=== PATIENT | male | born 1975 | race American Indian/Alaskan Native ===

== ENCOUNTER 2016-10-16 22:49 | Emergency (ER) | payer BC, OTHER ==
[2016-10-16] MEDS ORDERED: Lidocaine 1% 20 ML MDV INJECT ONE (22:59)
[2016-10-16] MEDS ORDERED: Bacitracin Oint 1 GM U/D Packet TOP ONE (22:59)
[2016-10-16] MEDS ORDERED: Diphtheria,Pertussis(Acell),Tetanus Vaccine 0.5 ML Syringe IM ONE (23:02)
--- NOTE | 2016-10-16 23:02 | EDM.PDOC ---
ED HPI GENERAL MEDICAL PROBLEM - General Chief Complaint: Upper Extremity Injury/Pain Stated Complaint: PAIN RT THUMB Time Seen by Provider: 10/16/16 22:59 Source of Information: Reports: Patient - History of Present Illness INITIAL COMMENTS - FREE TEXT/NARRATIVE: a hook imbedded in his right thumb about one hour ago. He is not sure about tetanus update status. - Related Data Allergies Allergy/AdvReac Type Severity Reaction Status Date / Time No Known Allergies Allergy Verified 10/16/16 23:04 Home Meds: Home Meds . [No Known Home Meds] 10/16/16 [History] Past Medical History Other HEENT History: wears contacts/glasses Cardiovascular History: Denies: CAD, Heart Failure, Hypertension Respiratory History: Reports: Sleep Apnea Gastrointestinal History: Denies: Cirrhosis Genitourinary History: Denies: Chronic Renal Insuffiency Endocrine/Metabolic History: Reports: Obesity/BMI 30+. Denies: Diabetes, Type I , Diabetes, Type II - Past Surgical History HEENT Surgical History: Reports: Other (See Below) Musculoskeletal Surgical History: Reports: Arthroscopic Knee Social & Family History - Tobacco Use Smoking Status *Q: Never Smoker - Recreational Drug Use Recreational Drug Use: No Drug Use in Last 12 Months: No Review of Systems - Review of Systems Review Of Systems: See Below (he denies other complaints) ED EXAM, GENERAL - Physical Exam Exam: See Below Free Text/Narrative:: alert normal mentation palmar aspect right thumb with the base of a hook protruding from the mid portion. Course - Vital Signs Last Recorded V/S: Last Vital Signs Temp 97.5 F 10/16/16 23:06 Pulse 83 10/16/16 23:06 Resp 18 10/16/16 23:06 BP 196/110 H 10/16/16 23:06 Pulse Ox 94 L 10/16/16 23:06 - Orders/Labs/Meds Orders: Active Orders 24 hr Category Date Time Status Vaccines to be Administered [RC] PER UNIT ROUTINE Care 10/16/16 23:02 Active Meds: Medications Discontinued Medications Generic Name Dose Route Start Last Admin Trade Name Freq PRN Reason Stop Dose Admin Bacitracin 1 dose 10/16/16 22:59 10/16/16 23:12 Bacitracin Oint 1 Gm TOP 10/16/16 23:00 1 dose ONETIME ONE Administration Diphtheria/Tetanus/Acell Pertussis 0.5 ml 10/16/16 23:02 10/16/16 23:13 Adacel IM 10/16/16 23:03 0.5 ml .ONCE ONE Administration Lidocaine HCl 20 ml 10/16/16 22:59 10/16/16 23:12 Xylocaine 1% INJECT 10/16/16 23:00 20 ml ONETIME ONE Administration - Re-Assessments/Exams Free Text/Narrative Re-Assessment/Exam: 10/16/16 23:15 after local cleansing with alcohol, and infiltrative anesthesia with 1% lidocaine, a small incision was made with a #11 blade. Then a sterile small curved elizabeth clamp was introduced and grasped the shaft of the hook backing it out of the entry wound. He tolerated the procedure well. He is given augmentin po x one dose and a prescription for augmentin 875/125 one po bid x seven days. Departure - Departure Time of Disposition: 23:18 Disposition: Home, Self-Care 01 Condition: Good Clinical Impression: Fish hook injury of right thumb - Discharge Information Referrals: PCP,None [Primary Care Provider] - Forms: ED Department Discharge Additional Instructions: augmentin 875 / 125 bid x seven days keep area clean recheck for signs of infection - My Orders Last 24 Hours: My Active Orders 10/16/16 23:02 Vaccines to be Administered [RC] PER UNIT ROUTINE - Assessment/Plan Last 24 Hours: My Active Orders 10/16/16 23:02 Vaccines to be Administered [RC] PER UNIT ROUTINE
[2016-10-16] MEDS ORDERED: Amoxicillin/Clavulanate K 875-125 MG Tab PO ONE (23:25)
[2016-10-16 23:47] VITALS: BP 181/101
== END 2016-10-16 23:48 | disposition home or self-care (01) ==
LOC: MW.ED 22:49
DX: S60.351A Superficial foreign body of right thumb, initial encounter (principal); E66.9 Obesity, unspecified; Z68.41 Body mass index [BMI] 40.0-44.9, adult; Z23 Encounter for immunization; W45.8XXA Other foreign body or object entering through skin, initial encounter
CPT/HCPCS: 10120; 90471; 90715; 99282; A9270

== ENCOUNTER 2018-06-17 02:50 | Emergency (ER) | payer BC, OTHER ==
[2018-06-17] MEDS ORDERED: Albuterol/Ipratropium 3.0-0.5 MG/3 ML Neb Soln NEB ONE (02:57)
--- NOTE | 2018-06-17 03:04 | EDM.PDOC ---
ED HPI GENERAL MEDICAL PROBLEM - General Chief Complaint: Respiratory Problem Stated Complaint: COUGHING Time Seen by Provider: 06/17/18 03:01 - History of Present Illness INITIAL COMMENTS - FREE TEXT/NARRATIVE: HISTORY AND PHYSICAL: History of present illness: Patient's 42-year-old white male presents with concern of cough and shortness of breath over last 5 days he was seen recently and put on Augmentin. Patient denies chest pain abdominal pain he denies influenza immunization this year he denies history of obstructive lung disease and is nonsmoker Review of systems: As per history of present illness and below otherwise all systems reviewed and negative. Past medical history: As per history of present illness and as reviewed below otherwise noncontributory. Surgical history: As per history of present illness and as reviewed below otherwise noncontributory. Social history: No reported history of drug or alcohol abuse. Family history: As per history of present illness and as reviewed below otherwise noncontributory. Physical exam: HEENT: Atraumatic, normocephalic, pupils reactive, negative for conjunctival pallor or scleral icterus, mucous membranes moist, throat clear, neck supple, nontender, trachea midline. Lungs: Coarse with end expiratory wheezing noted, breath sounds equal bilaterally, chest nontender. Heart: S1S2, regular, negative for clicks, rubs, or JVD. Abdomen: Soft, nondistended, nontender. Negative for masses or hepatosplenomegaly. Negative for costovertebral tenderness. Pelvis: Stable nontender. Genitourinary: Deferred. Rectal: Deferred. Extremities: Atraumatic, negative for cords or calf pain. Neurovascular unremarkable. Neuro: Awake, alert, oriented. Cranial nerves II through XII unremarkable. Cerebellum unremarkable. Motor and sensory unremarkable throughout. Exam nonfocal. Diagnostics: Chest x-ray influenza screen Therapeutics: Albuterol ipratropium nebulizer Impression: #1 pneumonitis Definitive disposition and diagnosis as appropriate pending reevaluation and review of above. - Related Data Allergies Allergy/AdvReac Type Severity Reaction Status Date / Time No Known Allergies Allergy Verified 06/17/18 03:28 Home Meds: Home Meds Amoxicillin/Potassium Clav [Amox-Clav 875-125 mg Tablet] 125 - 875 mg PO BID [History] Past Medical History Other HEENT History: wears contacts/glasses Respiratory History: Reports: Sleep Apnea Endocrine/Metabolic History: Reports: Obesity/BMI 30+. Denies: Diabetes, Type I , Diabetes, Type II - Past Surgical History HEENT Surgical History: Reports: Other (See Below) Musculoskeletal Surgical History: Reports: Arthroscopic Knee Social & Family History - Family History Family Medical History: Noncontributory ED ROS GENERAL - Review of Systems Review Of Systems: ROS reveals no pertinent complaints other than HPI. ED EXAM, GENERAL - Physical Exam Exam: See Below (See dictation) Course - Vital Signs Last Recorded V/S: Last Vital Signs Temp 35.5 C 06/17/18 02:51 Pulse 87 06/17/18 02:51 Resp 21 H 06/17/18 02:51 BP 160/110 H 06/17/18 02:51 Pulse Ox 95 06/17/18 02:51 - Orders/Labs/Meds Orders: Active Orders 24 hr Category Date Time Status RT Aerosol Therapy [RC] ASDIRECTED Care 06/17/18 02:57 Active Chest 1V Frontal [CR] Stat Exams 06/17/18 02:57 Taken Meds: Medications Discontinued Medications Generic Name Dose Route Start Last Admin Trade Name Freq PRN Reason Stop Dose Admin Albuterol/Ipratropium 3 ml 06/17/18 02:57 06/17/18 03:05 Duoneb 3.0-0.5 Mg/3 Ml NEB 06/17/18 02:58 3 ml ONETIME ONE Administration Departure - Departure Time of Disposition: 03:41 Disposition: Home, Self-Care 01 Condition: Good Clinical Impression: Pneumonitis - Discharge Information Forms: ED Department Discharge Additional Instructions: The following information is given to patients seen in the emergency department who are being discharged to home. This information is to outline your options for follow-up care. We provide all patients seen in our emergency department with a follow-up referral. The need for follow-up, as well as the timing and circumstances, are variable depending upon the specifics of your emergency department visit. If you don't have a primary care physician on staff, we will provide you with a referral. We always advise you to contact your personal physician following an emergency department visit to inform them of the circumstance of the visit and for follow-up with them and/or the need for any referrals to a consulting specialist. The emergency department will also refer you to a specialist when appropriate. This referral assures that you have the opportunity for followup care with a specialist. All of these measure are taken in an effort to provide you with optimal care, which includes your followup. Under all circumstances we always encourage you to contact your private physician who remains a resource for coordinating your care. When calling for followup care, please make the office aware that this follow-up is from your recent emergency room visit. If for any reason you are refused follow-up, please contact the [facility] emergency department at and asked to speak to the emergency department charge nurse. [facility] [address] [place] [phone] Continue Augmentin as prescribed albuterol as directed follow-up private medical doctor or clinic as discussed return as needed as discussed - My Orders Last 24 Hours: My Active Orders 06/17/18 02:57 RT Aerosol Therapy [RC] ASDIRECTED Chest 1V Frontal [CR] Stat - Assessment/Plan Last 24 Hours: My Active Orders 06/17/18 02:57 RT Aerosol Therapy [RC] ASDIRECTED Chest 1V Frontal [CR] Stat
--- NOTE | 2018-06-17 03:47 | CR ---
INDICATION: Cough, shortness of breath TECHNIQUE: Chest radiograph 1 view COMPARISON: None FINDINGS: Moderate degradation of image quality noted due to body habitus. Mediastinum: The mediastinum is normal in appearance. The heart silhouette is normal in size and morphology. Lung: Minimal left basilar atelectasis is seen. No sign of pleural effusion seen. No pneumothorax is identified. Musculoskeletal: Suture anchors are noted within the right humeral head. IMPRESSION: 1. Minimal left basilar atelectasis is seen. Dictated by Pj Burch MD @ 06/17/2018 3:45:15 AM Dictated by: Pj Burch MD @ 06/17/2018 03:45:20 (Electronically Signed)
[2018-06-17 04:00] VITALS: BP 152/104
== END 2018-06-17 04:00 | disposition home or self-care (01) ==
LOC: MW.ED 02:50
DX: J18.9 Pneumonia, unspecified organism (principal); E66.9 Obesity, unspecified
CPT/HCPCS: 71045; 71045-26; 87804; 94640; 99283-25; J7620-GY

== ENCOUNTER 2023-04-12 06:59 | Day surgery (SDC) | payer BC, OTHER ==
[~2023-04-12 06:59] MED LIST: Lactated Ringers 1,000 ML IV SCH
[2023-04-12] MEDS ORDERED: propofoL 50 ML ONE (08:08)
[2023-04-12 09:55] VITALS: BP 112/74; PULSE 81
== END 2023-04-12 09:55 | disposition home or self-care (01) ==
LOC: MW.SDS 06:59
PROVIDERS: ATTEND Surgery
DX: Z12.11 Encounter for screening for malignant neoplasm of colon (principal); K57.30 Diverticulosis of large intestine without perforation or abscess without bleeding; E11.9 Type 2 diabetes mellitus without complications; I10 Essential (primary) hypertension; G47.33 Obstructive sleep apnea (adult) (pediatric); E66.9 Obesity, unspecified; Z68.38 Body mass index [BMI] 38.0-38.9, adult; Z79.899 Other long term (current) drug therapy; Z88.1 Allergy status to other antibiotic agents
CPT/HCPCS: 45380; J2704; J7120; 00811